=== PATIENT | male | born 1960 | race African-American/Black ===

== ENCOUNTER 2020-11-11 13:57 | Emergency (ER) | payer OTHER ==
[2020-11-11 14:02] VITALS: BP 144/78; PULSE 104; TEMP 98.9; BMI 34.4
== END 2020-11-11 14:44 | disposition home or self-care (01) ==
LOC: JERFT 13:57
DX: M54.31 Sciatica, right side (principal)
CPT/HCPCS: 99283-25

== ENCOUNTER 2021-10-20 00:12 | Inpatient (IN) | payer OTHER ==
[2021-10-20] MEDS ORDERED: SODIUM CHLORIDE 3,130 ML IV ONE (00:48)
[2021-10-20] MEDS ORDERED: SODIUM CHLORIDE 1,000 ML IV STA (01:12)
[2021-10-20] MEDS ORDERED: ACETAMINOPHEN 1000 MG/100 ML BAG IVPB ONE ×2 (01:12→08:36)
[2021-10-20] MEDS ORDERED: ACETAMINOPHEN INJECTION 100 ML IVPB ONE ×3 (01:20→16:29)
[2021-10-20 01:56] LABS: VENOUS BASE EXCESS -0.2 mmol/L (-2-2); VENOUS O2 SATURATION 75.6 % (70-80); VENOUS PH 7.46 (7.310-7.410)
[2021-10-20 01:58] LABS: HEMATOCRIT 37.8 % (35.4-49); HEMOGLOBIN 13.3 GM/dL (11.7-16.9); MCH 28.8 pg (25.7-33.7); MCHC 35.2 g/dl (32.0-35.9); MEAN PLT VOLUME 9.8 fl (7.5-11.1); PLATELET COUNT 92 10^3/uL (134-434); RBC 4.61 M/mm3 (4.00-5.60); RDW 14.7 % (11.9-15.9); WHITE BLOOD COUNT 9.3 K/mm3 (4.0-10.0)
[2021-10-20 02:05] LABS: INR 1.56 (0.83-1.09)
[2021-10-20 02:08] LABS: ACTIVATED PTT 31.9 SECONDS (25.2-36.5)
[2021-10-20 02:19] LABS: CALCIUM 7.9 mg/dL (8.5-10.1)
[2021-10-20 02:20] LABS: ALBUMIN 3.2 g/dl (3.4-5.0); BLOOD UREA NITROGEN 31.9 mg/dL (7-18)
[2021-10-20 02:23] LABS: CREATININE 2.6 mg/dL (0.55-1.3)
[2021-10-20 02:25] LABS: BILIRUBIN,TOTAL 1.6 mg/dL (0.2-1); TOT PROT 6.4 g/dl (6.4-8.2)
[2021-10-20 02:36] LABS: ANISOCYTOSIS 1+; MACROCYTOSIS 0
[2021-10-20 03:43] LABS: EPI CELLS 30 /uL (0-25.1); HYALINE CASTS 16 /uL (0-3.1); URINE APPEARANCE CLOUDY; URINE BACTERIA 11 /uL (0-1359); URINE BILIRUBIN 1+ (NEGATIVE); URINE COLOR ORANGE; URINE GLUCOSE (UA) NEGATIVE (NEGATIVE); URINE KETONE TRACE (NEGATIVE); URINE LEUK ESTERASE 2+ (NEGATIVE); URINE NITRITE NEGATIVE (NEGATIVE); URINE PROTEIN 1+ (NEGATIVE); URINE RBC 354 /uL (0-23.9); URINE WBC 302 /uL (0-25.8)
[2021-10-20] MEDS ORDERED: CEFTRIAXONE 1,000 MG in DEXTROSE 5%-WATER - 50 ML IVPB ONE (05:05)
[2021-10-20] MEDS ORDERED: CEFTRIAXONE 1 GM/50 ML BAG ONE (06:15)
[2021-10-20] MEDS ORDERED: SODIUM CHLORIDE 0.9% 500 ML INFUS.BAG IV ONE (08:36)
[2021-10-20] MEDS: SODIUM CHLORIDE 1,000 ML IV SCH (10:22)
[2021-10-20] MEDS: ACETAMINOPHEN 1000 MG/100 ML BAG IVPB PRN (16:33)
[2021-10-21] MEDS ORDERED: ACETAMINOPHEN INJECTION 100 ML IVPB ONE (00:38)
[2021-10-21] MEDS: ACETAMINOPHEN 1000 MG/100 ML BAG IVPB PRN ×3 (00:39→22:14)
[2021-10-21] MEDS ORDERED: ONDANSETRON 4 MG/2 ML VIAL IVPUSH PRN (09:18)
[2021-10-21] MEDS ORDERED: LISINOPRIL 10 MG TABLET PO SCH (10:00)
[2021-10-21] MEDS ORDERED: CEFTRIAXONE 1 GM in DEXTROSE 5%-WATER - 50 ML IVPB SCH (10:00)
[2021-10-21] MEDS: ENOXAPARIN NA (PORCINE) 40 MG/0.4 ML DISP.SYRIN SQ SCH (11:00)
[2021-10-21] MEDS: SODIUM CHLORIDE 1,000 ML IV SCH (11:01)
[2021-10-21] MEDS ORDERED: cefTRIAXone SODIUM 1 GM VIAL ONE ×2 (11:02→11:54)
[2021-10-21] MEDS ORDERED: DEXTROSE 5%-WATER - 50 ML IVPB ONE ×2 (11:02→11:54)
[2021-10-21] MEDS: KCL 10 MEQ IVPB 10 MEQ/100 ML INFUS.BAG IVPB SCH ×3 (11:07→14:53)
[2021-10-21] MEDS ORDERED: CEFTRIAXONE 1 GM in DEXTROSE 5%-WATER - 50 ML IVPB ONE (11:26)
[2021-10-21 12:51] LABS: HEMATOCRIT 35.6 % (35.4-49); HEMOGLOBIN 12.1 GM/dL (11.7-16.9); MCH 28.1 pg (25.7-33.7); MEAN CELL VOLUME 82.6 fl (80-96); MEAN PLT VOLUME 10.6 fl (7.5-11.1); PLATELET COUNT 59 10^3/uL (134-434); RBC 4.31 M/mm3 (4.00-5.60); RDW 15.5 % (11.9-15.9); WHITE BLOOD COUNT 12.4 K/mm3 (4.0-10.0)
[2021-10-21 13:01] LABS: CALCIUM 7.5 mg/dL (8.5-10.1)
[2021-10-21 13:02] LABS: MAGNESIUM 1.7 mg/dL (1.8-2.4)
[2021-10-21 13:05] LABS: CREATININE 1.5 mg/dL (0.55-1.3); PHOSPHOROUS 1.7 mg/dL (2.5-4.9)
[2021-10-21 13:06] LABS: BILIRUBIN,TOTAL 1.6 mg/dL (0.2-1); BLOOD UREA NITROGEN 28.1 mg/dL (7-18)
[2021-10-21 13:07] LABS: TOT PROT 5.6 g/dl (6.4-8.2)
[2021-10-21 13:12] LABS: ALBUMIN 2.5 g/dl (3.4-5.0)
[2021-10-21 13:30] LABS: ANISOCYTOSIS 1+; MACROCYTOSIS 0
[2021-10-21] MEDS ORDERED: KCL 10 MEQ IVPB 10 MEQ/100 ML INFUS.BAG IVPB SCH (15:00)
[2021-10-21 15:07] VITALS: BMI 33.5
[2021-10-21] MEDS ORDERED: NAPH,MB-DB/K PH,MBDB POWDER PACKET PO ONE (16:43)
[2021-10-21] MEDS ORDERED: MAGNESIUM SULF 50% (8.12 MEQ/2 ML-1 GM VIAL) IVPB ONE (16:43)
[2021-10-21] MEDS ORDERED: MELATONIN 5 MG TABLETS PO PRN (20:20)
[2021-10-22] MEDS: SODIUM CHLORIDE 1,000 ML IV SCH ×2 (04:30→13:32)
[2021-10-22] MEDS ORDERED: DEXTROSE 5%-WATER 100 ML IVPB ONE (09:05)
[2021-10-22] MEDS: ACETAMINOPHEN 1000 MG/100 ML BAG IVPB PRN (09:17)
[2021-10-22] MEDS: ENOXAPARIN NA (PORCINE) 40 MG/0.4 ML DISP.SYRIN SQ SCH (09:17)
[2021-10-22] MEDS ORDERED: CEFTRIAXONE 2 GM in DEXTROSE 5%-WATER 2 GM/100 ML BAG IVPB SCH (10:00)
[2021-10-22 18:56] LABS: HEMOGLOBIN 11.7 GM/dL (11.7-16.9); MCH 28.5 pg (25.7-33.7); MCHC 34.3 g/dl (32.0-35.9); MEAN PLT VOLUME 10.4 fl (7.5-11.1); PLATELET COUNT 63 10^3/uL (134-434); RDW 15.5 % (11.9-15.9); WHITE BLOOD COUNT 5.9 K/mm3 (4.0-10.0)
[2021-10-22 19:12] LABS: CHLORIDE 107 mmol/L (98-107); SODIUM 140 mmol/L (136-145)
[2021-10-22 19:14] LABS: CALCIUM 7.6 mg/dL (8.5-10.1)
[2021-10-22 19:15] LABS: ALBUMIN 2.3 g/dl (3.4-5.0); ANION GAP 6 MMOL/L (8-16); BLOOD UREA NITROGEN 21.2 mg/dL (7-18); CO2 26 mmol/L (21-32); GLUCOSE,RANDOM 108 mg/dL (74-106); MAGNESIUM 2.2 mg/dL (1.8-2.4)
[2021-10-22 19:17] LABS: BILIRUBIN,DIRECT 0.6 mg/dL (0.0-0.2)
[2021-10-22 19:18] LABS: CREATININE 1.1 mg/dL (0.55-1.3); SGOT/AST 294 U/L (15-37); SGPT/ALT 173 U/L (13-61)
[2021-10-22 19:19] LABS: TOT PROT 5.5 g/dl (6.4-8.2)
[2021-10-22 19:21] LABS: ALK PHOS 134 U/L (45-117); PHOSPHOROUS 0.9 mg/dL (2.5-4.9)
[2021-10-22] MEDS ORDERED: IBUPROFEN 600 MG TABLET (FP) PO PRN (20:17)
[2021-10-22] MEDS ORDERED: PIPERACILLIN/TAZOBACTAM 3.375 GM VIAL IVPB ONE (20:22)
[2021-10-22] MEDS ORDERED: DEXTROSE 5%-WATER - 50 ML IVPB ONE (20:23)
[2021-10-22] MEDS: PHENAZOPYRIDINE HCL 100 MG TABLET (FP) PO SCH (20:29)
[2021-10-22] MEDS: NAPH,MB-DB/K PH,MBDB POWDER PACKET PO SCH (20:30)
[2021-10-22 20:31] LABS: ANISOCYTOSIS 1+; MACROCYTOSIS 0; PLATELET ESTIMATE DECREASED
[2021-10-22] MEDS: PIPERACILLIN/TAZOB 3.375 GM 3.375 GM in DEXTROSE 5%-WATER - 50 ML IVPB SCH (21:06)
[2021-10-23] MEDS ORDERED: PIPERACILLIN/TAZOBACTAM 3.375 GM VIAL IVPB ONE ×3 (00:49→18:09)
[2021-10-23] MEDS ORDERED: DEXTROSE 5%-WATER - 50 ML IVPB ONE ×3 (00:49→18:09)
[2021-10-23] MEDS: SODIUM CHLORIDE 1,000 ML IV SCH ×2 (01:38→10:45)
[2021-10-23] MEDS: PIPERACILLIN/TAZOB 3.375 GM 3.375 GM in DEXTROSE 5%-WATER - 50 ML IVPB SCH ×3 (01:39→18:25)
[2021-10-23] MEDS: PHENAZOPYRIDINE HCL 100 MG TABLET (FP) PO SCH ×2 (05:42→18:26)
[2021-10-23 09:20] LABS: HEMOGLOBIN 11.5 GM/dL (11.7-16.9); MCH 28.1 pg (25.7-33.7); MCHC 33.8 g/dl (32.0-35.9); MEAN CELL VOLUME 83.2 fl (80-96); MEAN PLT VOLUME 10.2 fl (7.5-11.1); PLATELET COUNT 66 10^3/uL (134-434); RBC 4.08 M/mm3 (4.00-5.60); RDW 15.4 % (11.9-15.9); WHITE BLOOD COUNT 5.8 K/mm3 (4.0-10.0)
[2021-10-23 09:50] LABS: ALBUMIN 2.2 g/dl (3.4-5.0)
[2021-10-23 09:55] LABS: BILIRUBIN,TOTAL 1.3 mg/dL (0.2-1)
[2021-10-23 09:56] LABS: TOT PROT 5.4 g/dl (6.4-8.2)
[2021-10-23 09:57] LABS: BLOOD UREA NITROGEN 19.2 mg/dL (7-18); MAGNESIUM 2.2 mg/dL (1.8-2.4)
[2021-10-23 09:58] LABS: ALBUMIN 2.2 g/dl (3.4-5.0); CALCIUM 7.8 mg/dL (8.5-10.1)
[2021-10-23 09:59] LABS: CREATININE 1.2 mg/dL (0.55-1.3); PHOSPHOROUS 1.9 mg/dL (2.5-4.9); TOT PROT 5.5 g/dl (6.4-8.2)
[2021-10-23 10:04] LABS: ANISOCYTOSIS 0; BILIRUBIN,TOTAL 1.1 mg/dL (0.2-1); HELMET CELLS 0; HOWELL-JOLLY BODIES 0; MACROCYTOSIS 0; OVALOCYTE 0; ROULEAU 0; SICKELED CELLS 0; TARGET CELLS 0; TEAR DROP CELLS 0; TOXIC GRANULATION 0
[2021-10-23 10:09] LABS: BILIRUBIN,DIRECT 0.5 mg/dL (0.0-0.2)
[2021-10-23] MEDS ORDERED: NAPH,MB-DB/K PH,MBDB POWDER PACKET PO ONE (11:00)
[2021-10-23] MEDS: NAPH,MB-DB/K PH,MBDB POWDER PACKET PO SCH (19:05)
[2021-10-24] MEDS ORDERED: ceFAZolin SODIUM 1 GM VIAL ONE ×4 (01:15→18:36)
[2021-10-24] MEDS ORDERED: DEXTROSE 5%-WATER - 50 ML IVPB ONE ×4 (01:15→18:36)
[2021-10-24] MEDS: CEFAZOLIN 1 GM in DEXTROSE 5%-WATER - 50 ML IVPB SCH ×3 (01:17→18:49)
[2021-10-24] MEDS: SODIUM CHLORIDE 1,000 ML IV SCH (01:18)
[2021-10-24] MEDS: ACETAMINOPHEN 325 MG TABLET (FP) PO PRN ×2 (01:22→18:49)
[2021-10-24] MEDS: PHENAZOPYRIDINE HCL 100 MG TABLET (FP) PO SCH (06:41)
[2021-10-24 07:25] LABS: HEMATOCRIT 34.9 % (35.4-49); HEMOGLOBIN 11.9 GM/dL (11.7-16.9); MCH 28.2 pg (25.7-33.7); MEAN CELL VOLUME 82.8 fl (80-96); MEAN PLT VOLUME 10.4 fl (7.5-11.1); PLATELET COUNT 88 10^3/uL (134-434); RBC 4.22 M/mm3 (4.00-5.60); RDW 15.6 % (11.9-15.9); WHITE BLOOD COUNT 7.7 K/mm3 (4.0-10.0)
[2021-10-24 07:44] LABS: ALBUMIN 2.3 g/dl (3.4-5.0); BLOOD UREA NITROGEN 13.3 mg/dL (7-18); MAGNESIUM 1.8 mg/dL (1.8-2.4)
[2021-10-24 07:47] LABS: PHOSPHOROUS 2.8 mg/dL (2.5-4.9)
[2021-10-24 07:49] LABS: BILIRUBIN,TOTAL 0.8 mg/dL (0.2-1); TOT PROT 5.5 g/dl (6.4-8.2)
[2021-10-24 11:02] LABS: ANISOCYTOSIS 2+; MACROCYTOSIS 0; OVALOCYTE 2+; TEAR DROP CELLS 1+; TOXIC GRANULATION 2+
[2021-10-24] MEDS ORDERED: PHENAZOPYRIDINE HCL 100 MG TABLET (FP) PO ONE (16:14)
[2021-10-25] MEDS ORDERED: ceFAZolin SODIUM 1 GM VIAL ONE ×2 (01:52→10:03)
[2021-10-25] MEDS ORDERED: DEXTROSE 5%-WATER - 50 ML IVPB ONE ×3 (01:53→13:20)
[2021-10-25] MEDS: CEFAZOLIN 1 GM in DEXTROSE 5%-WATER - 50 ML IVPB SCH ×2 (02:00→10:12)
[2021-10-25 09:41] LABS: HEMATOCRIT 37.1 % (35.4-49); HEMOGLOBIN 12.7 GM/dL (11.7-16.9); MCH 28.2 pg (25.7-33.7); MCHC 34.3 g/dl (32.0-35.9); MEAN CELL VOLUME 82.4 fl (80-96); PLATELET COUNT 145 10^3/uL (134-434); RDW 15.5 % (11.9-15.9); WHITE BLOOD COUNT 8.4 K/mm3 (4.0-10.0)
[2021-10-25] MEDS: ACETAMINOPHEN 325 MG TABLET (FP) PO PRN (10:12)
[2021-10-25] MEDS: LISINOPRIL 10 MG TABLET PO SCH (10:12)
[2021-10-25 10:19] LABS: ALBUMIN 2.7 g/dl (3.4-5.0); BLOOD UREA NITROGEN 13.6 mg/dL (7-18)
[2021-10-25 10:21] LABS: BILIRUBIN,TOTAL 0.7 mg/dL (0.2-1); TOT PROT 6.6 g/dl (6.4-8.2)
[2021-10-25 10:38] LABS: ANISOCYTOSIS 2+; MACROCYTOSIS 0
[2021-10-25] MEDS ORDERED: PIPERACILLIN/TAZOB 3.375 GM 3.375 GM in DEXTROSE 5%-WATER - 50 ML IVPB SCH ×3 (11:45→18:00)
[2021-10-25] MEDS ORDERED: PIPERACILLIN/TAZOBACTAM 3.375 GM VIAL IVPB ONE (13:20)
[2021-10-25] MEDS: HYDROCHLOROTHIAZIDE 12.5 MG CAPSULE (FP) PO SCH (13:26)
[2021-10-25] MEDS ORDERED: DEXTROSE 5%-WATER 100 ML IVPB ONE (17:51)
[2021-10-25] MEDS ORDERED: MEROPENEM 1 GM VIAL (RESTRICTED TO ID) IVPB ONE (17:51)
[2021-10-25] MEDS: MEROPENEM 1 GM in DEXTROSE 5%-WATER 100 ML IVPB SCH (18:06)
[2021-10-25] MEDS: SODIUM CHLORIDE 0.45% 1,000 ML IV SCH (21:38)
[2021-10-25] MEDS: LACTOBACILLUS ACIDOPHILUS 1 TABLET PO SCH (21:41)
[2021-10-26] MEDS ORDERED: MEROPENEM 1 GM VIAL (RESTRICTED TO ID) IVPB ONE ×3 (01:30→17:15)
[2021-10-26] MEDS ORDERED: DEXTROSE 5%-WATER 100 ML IVPB ONE ×3 (01:30→17:16)
[2021-10-26] MEDS: MEROPENEM 1 GM in DEXTROSE 5%-WATER 100 ML IVPB SCH ×3 (01:34→17:25)
[2021-10-26 09:20] LABS: HEMATOCRIT 36.7 % (35.4-49); HEMOGLOBIN 12.9 GM/dL (11.7-16.9); MCH 28.5 pg (25.7-33.7); MCHC 35.2 g/dl (32.0-35.9); MEAN CELL VOLUME 81.1 fl (80-96); MEAN PLT VOLUME 9.2 fl (7.5-11.1); PLATELET COUNT 220 10^3/uL (134-434); RBC 4.52 M/mm3 (4.00-5.60); RDW 15.5 % (11.9-15.9); WHITE BLOOD COUNT 10.6 K/mm3 (4.0-10.0)
[2021-10-26] MEDS: NIFEdipine E.R. 30 MG TABLET PO SCH (10:09)
[2021-10-26] MEDS: HYDROCHLOROTHIAZIDE 12.5 MG CAPSULE (FP) PO SCH (10:09)
[2021-10-26] MEDS: LISINOPRIL 10 MG TABLET PO SCH (10:09)
[2021-10-26 10:40] LABS: CALCIUM 9.4 mg/dL (8.5-10.1)
[2021-10-26 10:41] LABS: ANISOCYTOSIS 2+; BLOOD UREA NITROGEN 16.9 mg/dL (7-18); MACROCYTOSIS 0; MAGNESIUM 2.1 mg/dL (1.8-2.4); OVALOCYTE 1+; TARGET CELLS 1+; TEAR DROP CELLS 1+
[2021-10-26 10:44] LABS: CREATININE 1.2 mg/dL (0.55-1.3); PHOSPHOROUS 3.3 mg/dL (2.5-4.9)
[2021-10-26 10:45] LABS: TOT PROT 7.1 g/dl (6.4-8.2)
[2021-10-26 10:46] LABS: BILIRUBIN,TOTAL 0.7 mg/dL (0.2-1)
[2021-10-26] MEDS: ACETAMINOPHEN 325 MG TABLET (FP) PO PRN (19:49)
[2021-10-26] MEDS: SODIUM CHLORIDE 0.45% 1,000 ML IV SCH (19:51)
[2021-10-26] MEDS: LACTOBACILLUS ACIDOPHILUS 1 TABLET PO SCH (21:53)
[2021-10-27] MEDS ORDERED: MEROPENEM 1 GM VIAL (RESTRICTED TO ID) IVPB ONE ×3 (01:00→16:39)
[2021-10-27] MEDS ORDERED: DEXTROSE 5%-WATER 100 ML IVPB ONE ×3 (01:01→16:39)
[2021-10-27] MEDS: MEROPENEM 1 GM in DEXTROSE 5%-WATER 100 ML IVPB SCH ×3 (01:21→17:07)
[2021-10-27] MEDS: SODIUM CHLORIDE 0.45% 1,000 ML IV SCH (01:21)
[2021-10-27 08:42] LABS: HEMATOCRIT 36.7 % (35.4-49); HEMOGLOBIN 12.8 GM/dL (11.7-16.9); MCH 28.5 pg (25.7-33.7); MCHC 34.8 g/dl (32.0-35.9); MEAN CELL VOLUME 81.9 fl (80-96); MEAN PLT VOLUME 8.2 fl (7.5-11.1); PLATELET COUNT 265 10^3/uL (134-434); RBC 4.48 M/mm3 (4.00-5.60); RDW 15.8 % (11.9-15.9); WHITE BLOOD COUNT 10.1 K/mm3 (4.0-10.0)
[2021-10-27 09:03] LABS: CALCIUM 9.1 mg/dL (8.5-10.1)
[2021-10-27 09:07] LABS: CREATININE 1.1 mg/dL (0.55-1.3)
[2021-10-27 09:08] LABS: TOT PROT 7.1 g/dl (6.4-8.2)
[2021-10-27 09:09] LABS: BILIRUBIN,TOTAL 0.8 mg/dL (0.2-1)
[2021-10-27] MEDS: HYDROCHLOROTHIAZIDE 12.5 MG CAPSULE (FP) PO SCH (09:09)
[2021-10-27] MEDS: ENOXAPARIN NA (PORCINE) 40 MG/0.4 ML DISP.SYRIN SQ SCH (09:09)
[2021-10-27] MEDS: LISINOPRIL 10 MG TABLET PO SCH (09:09)
[2021-10-27] MEDS: NIFEdipine E.R. 30 MG TABLET PO SCH (09:10)
[2021-10-27 11:17] LABS: ANISOCYTOSIS 1+; MACROCYTOSIS 0; PLATELET ESTIMATE NORMAL
[2021-10-27] MEDS: LACTOBACILLUS ACIDOPHILUS 1 TABLET PO SCH (21:14)
[2021-10-28] MEDS ORDERED: MEROPENEM 1 GM VIAL (RESTRICTED TO ID) IVPB ONE ×3 (00:57→16:38)
[2021-10-28] MEDS ORDERED: DEXTROSE 5%-WATER 100 ML IVPB ONE ×3 (00:58→16:39)
[2021-10-28] MEDS: MEROPENEM 1 GM in DEXTROSE 5%-WATER 100 ML IVPB SCH ×3 (01:22→17:40)
[2021-10-28] MEDS: SODIUM CHLORIDE 0.45% 1,000 ML IV SCH ×2 (01:54→23:15)
[2021-10-28 07:39] LABS: HEMATOCRIT 35.7 % (35.4-49); HEMOGLOBIN 12.5 GM/dL (11.7-16.9); MCH 28.5 pg (25.7-33.7); MCHC 34.9 g/dl (32.0-35.9); MEAN CELL VOLUME 81.6 fl (80-96); MEAN PLT VOLUME 8.1 fl (7.5-11.1); PLATELET COUNT 306 10^3/uL (134-434); RBC 4.38 M/mm3 (4.00-5.60); RDW 15.4 % (11.9-15.9); WHITE BLOOD COUNT 8.5 K/mm3 (4.0-10.0)
[2021-10-28 08:00] LABS: BLOOD UREA NITROGEN 18.8 mg/dL (7-18); CALCIUM 9.2 mg/dL (8.5-10.1)
[2021-10-28 08:01] LABS: ALBUMIN 2.8 g/dl (3.4-5.0)
[2021-10-28 08:04] LABS: CREATININE 1.2 mg/dL (0.55-1.3)
[2021-10-28 08:05] LABS: BILIRUBIN,TOTAL 0.7 mg/dL (0.2-1); TOT PROT 6.9 g/dl (6.4-8.2)
[2021-10-28 08:43] LABS: ANISOCYTOSIS 0; HELMET CELLS 0; HOWELL-JOLLY BODIES 0; MACROCYTOSIS 0; OVALOCYTE 0; ROULEAU 0; SICKELED CELLS 0; TARGET CELLS 0; TEAR DROP CELLS 0; TOXIC GRANULATION 0
[2021-10-28] MEDS: HYDROCHLOROTHIAZIDE 12.5 MG CAPSULE (FP) PO SCH (09:40)
[2021-10-28] MEDS: LISINOPRIL 10 MG TABLET PO SCH (09:40)
[2021-10-28] MEDS: ENOXAPARIN NA (PORCINE) 40 MG/0.4 ML DISP.SYRIN SQ SCH (09:40)
[2021-10-28] MEDS: NIFEdipine E.R. 30 MG TABLET PO SCH (09:40)
[2021-10-28] MEDS ORDERED: SODIUM ZIRCONIUM CYCLOSILICATE (LOKELMA) 5 GM PACKET PO ONE (15:47)
[2021-10-28] MEDS: LACTOBACILLUS ACIDOPHILUS 1 TABLET PO SCH (21:57)
[2021-10-29] MEDS ORDERED: MEROPENEM 1 GM VIAL (RESTRICTED TO ID) IVPB ONE ×2 (01:12→09:23)
[2021-10-29] MEDS ORDERED: DEXTROSE 5%-WATER 100 ML IVPB ONE ×2 (01:12→09:23)
[2021-10-29] MEDS: MEROPENEM 1 GM in DEXTROSE 5%-WATER 100 ML IVPB SCH ×2 (01:20→09:49)
[2021-10-29 07:17] VITALS: RESP 18
[2021-10-29 08:37] LABS: HEMATOCRIT 39.1 % (35.4-49); HEMOGLOBIN 13.5 GM/dL (11.7-16.9); MCH 28.3 pg (25.7-33.7); MCHC 34.5 g/dl (32.0-35.9); MEAN CELL VOLUME 82.2 fl (80-96); MEAN PLT VOLUME 8.5 fl (7.5-11.1); PLATELET COUNT 368 10^3/uL (134-434); RBC 4.76 M/mm3 (4.00-5.60); RDW 15.9 % (11.9-15.9); WHITE BLOOD COUNT 7.5 K/mm3 (4.0-10.0)
[2021-10-29 09:07] LABS: ALBUMIN 3.2 g/dl (3.4-5.0); BLOOD UREA NITROGEN 19.6 mg/dL (7-18)
[2021-10-29 09:08] LABS: CALCIUM 9.4 mg/dL (8.5-10.1)
[2021-10-29 09:10] LABS: CREATININE 1.2 mg/dL (0.55-1.3)
[2021-10-29 09:12] LABS: BILIRUBIN,TOTAL 0.7 mg/dL (0.2-1); TOT PROT 7.7 g/dl (6.4-8.2)
[2021-10-29] MEDS: ENOXAPARIN NA (PORCINE) 40 MG/0.4 ML DISP.SYRIN SQ SCH (09:48)
[2021-10-29] MEDS: NIFEdipine E.R. 30 MG TABLET PO SCH (09:48)
[2021-10-29] MEDS: LISINOPRIL 10 MG TABLET PO SCH (09:48)
[2021-10-29] MEDS: HYDROCHLOROTHIAZIDE 12.5 MG CAPSULE (FP) PO SCH (09:49)
[2021-10-29 10:35] VITALS: BP 133/75; PULSE 88; TEMP 98.3
[2021-10-29 11:27] LABS: ANISOCYTOSIS 0; HELMET CELLS 0; HOWELL-JOLLY BODIES 0; MACROCYTOSIS 0; OVALOCYTE 0; ROULEAU 0; SICKELED CELLS 0; TARGET CELLS 0; TEAR DROP CELLS 0; TOXIC GRANULATION 0
== END 2021-10-29 13:04 | disposition home or self-care (01) | DRG 862 ==
LOC: JER 00:12 → JERBED 07:03 → J7W 10-21 09:31
PROVIDERS: ADMIT Internal Medicine; ATTEND Internal Medicine
DX: T81.40XA Infection following a procedure, unspecified, initial encounter (principal); A41.59 Other Gram-negative sepsis; R65.20 Severe sepsis without septic shock; N41.0 Acute prostatitis; N17.9 Acute kidney failure, unspecified; E87.2 Acidosis; T81.44XA Sepsis following a procedure, initial encounter; I10 Essential (primary) hypertension; E83.42 Hypomagnesemia; E83.39 Other disorders of phosphorus metabolism; M79.10 Myalgia, unspecified site; N40.0 Benign prostatic hyperplasia without lower urinary tract symptoms; R50.9 Fever, unspecified; K76.0 Fatty (change of) liver, not elsewhere classified; R30.0 Dysuria; B35.1 Tinea unguium; D69.6 Thrombocytopenia, unspecified; R19.7 Diarrhea, unspecified; Y83.8 Other surgical procedures as the cause of abnormal reaction of the patient, or of later complication, without mention of misadventure at the time of the procedure
CPT/HCPCS: 0241U-QW; 36415; 71045-TC-FY; 74177-TC; 76705-TC; 80048; 80053; 80076; 81003; 82272; 82803; 83605; 83735; 84100; 85025; 85610; 85730; 86850; 86900; 86901; 87040; 87086; 87186; 93005; 93010; 99285-25; Q9967